=== PATIENT | female | born 1965 | race Caucasian/White ===

== ENCOUNTER → 2016-12-29 08:09 | Outpatient (CLI) | payer BC ==
[2015-06-30 06:08] VITALS: BMI 28.5
[~2016-12-29 08:09] MED LIST: CLARITIN 10 MG10 MG PO; FLUTICASONE PRO16 GM NASAL; HYDROCODONE-APA1 TAB PO; MOBIC7.5 MG PO; NEXIUM40 MG; NEXIUM40 MG PO; RESTASIS EYE DR30 EA EACH EYE; ROGAINE60 M1 TP; ZYRTEC10 MG PO
== END ==
LOC: D.MRI 08:09
DX: M25.562 Pain in left knee (principal)

== ENCOUNTER 2017-02-09 05:47 | Day surgery (SDC) | payer BC ==
[2017-02-08 10:52] LABS: HEMATOCRIT 37.7 % (36.0-48.0); HEMOGLOBIN 12.7 g/dL (12-16); MCH 31.3 pg (26.0-34.0); MCHC 33.7 g/dL (31.0-37.0); MCV 92.9 fL (80.0-100.0); RBC 4.06 10x6/uL (4.00-5.40); RDW 12.9 % (11.5-14.5); WBC 5.5 10x3/uL (4.8-10.8)
[~2017-02-09] VITALS: Ht 160 cm; Wt 77.1 kg
[~2017-02-09 05:47] MED LIST changes: -HYDROCODONE-APA1 TAB PO; -RESTASIS EYE DR30 EA EACH EYE; -ROGAINE60 M1 TP
[2017-02-09] MEDS ORDERED: RESTASIS EYE DR30 EA EACH EYE (06:36)
[2017-02-09] MEDS ORDERED: ROGAINE60 M1 TP (06:36)
[2017-02-09 06:40] VITALS: BP 99/55; Ht 160 cm; Wt 77.1 kg
[2017-02-09] MEDS ORDERED: HYDROCODONE-APA1 TAB PO (08:42)
--- NOTE | 2017-02-09 11:09 | NUR ---
0945 IV DC WITH CATHER TIP INTACT
--- NOTE | 2017-02-09 11:28 | NUR ---
1015 WAITING ON [facility]
--- NOTE | 2017-02-16 12:12 | OP ---
PATIENT NAME: DIA ESQUEDA MEDICAL RECORD: [id number] :69 LOCATION:[facility] ADMISSION DATE: SURGEON: NASIMA WEI MD DATE OF OPERATION: 02/09/2017 PREOPERATIVE DIAGNOSIS: Left knee medial meniscus tear. POSTOPERATIVE DIAGNOSES: Left knee medial meniscus tear plus lateral meniscus tear. PROCEDURE PERFORMED: Left knee partial medial and lateral meniscectomy. SURGEON: Luis Wei MD ANESTHESIA: General. CONDITION: She tolerated the procedure well, was transferred to the recovery room in stable condition. INDICATIONS: This is a 52-year-old female, who has been having increasing pain in her knee, specifically at the medial joint line. She had an MRI showing a meniscus tear. We discussed the options. She wanted to proceed with an arthroscopy. We discussed the risks, benefits, and alternatives including blood loss, scar, pain, need for further procedure, anesthesia risk. She understood and wished to proceed. OPERATIVE REPORT: The patient was taken to the operating room and placed in supine position. General anesthesia was obtained. Her right hip was confirmed to be the correct hip. It was prepped and draped in the normal fashion. Procedure was begun by marking out portal sites and injecting them with 0.25% Marcaine with epinephrine. I established the anterolateral portal for the scope and inflow, superior medial portal for the outflow, knee was inspected. 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 There was some exposed bone on the backside of the patella and then trochlea. The patella look like it was tracking fine though. Coming down the medial gutter into the joint line, she certainly had marginal osteophytes noted. Dropping into the medial joint line, she had some grade II-III chondromalacia. On the medial femoral condyle, she did have a posteromedial meniscus tear. I did establish an anterior medial portal under direct visualization. I then proceeded to debride the medial meniscus with a straight biter and a shaver. This was done taking at the least amount possible. I then proceeded to move to the notch where the ACL and PCL were notably intact. Switching to a [id number] position and checking laterally, she did have a radial lateral tear as well. This was debrided with a straight biter and a shaver. The lateral cartilage looked overall very good. I went back and collected the small fragments from the pouch and brought the case to a close. She was injected with Duramorph and Marcaine plain. She was closed with 3-0 Prolene, placed in soft dressing, awakened and transferred to the recovery room in stable condition, having tolerated procedure well. TRANSINT:[id number] Voice Confirmation ID: [id number] DOCUMENT ID: [id number] OPERATIVE REPORT [id number] DIA ESQUEDA, NASIMA GAN MD at 1212 CC: [id number] DICTATION DATE: 02/09/17845 TEMPORARY OFFICE ASSISTANT: 02/09/17 0916 [facility] 02/09/17 [facility] [address] [place] [address]
== END 2017-02-09 10:30 | disposition home or self-care (01) ==
LOC: D.OPS 05:47 → D.PAN 08:00 → D.OPS 10:30
PROVIDERS: Anesthesiology
DX: S83.242A Other tear of medial meniscus, current injury, left knee, initial encounter (principal); S83.282A Other tear of lateral meniscus, current injury, left knee, initial encounter